=== PATIENT | male | born 1935 | race Caucasian/White ===

== ENCOUNTER 2018-09-16 16:24 | Observation (INO) ==
[2018-09-16] MEDS ORDERED: Dextrose Gel 15 GM/37.5 ML TUBE PO PRN ×2 (19:05)
[2018-09-16] MEDS ORDERED: D5% in Water 1,000 ML IVC PRN (19:05)
[2018-09-16] MEDS ORDERED: *HR* Dextrose 50 % in Water (Syg) 50 ML SYRINGE IVP PRN (19:05)
[2018-09-16] MEDS ORDERED: 0.9 % Sodium Chloride 1,000 ML IVC SCH (21:00)
[2018-09-16] MEDS ORDERED: Ondansetron 4 MG/2 ML VIAL IVP PRN (21:38)
[2018-09-16] MEDS ORDERED: Naloxone 0.4 MG/ML INJ IVP PRN (21:38)
[2018-09-16] MEDS ORDERED: Insulin DETEMIR 100 UNIT/ML X5UNITS SQ ONE (21:43)
[2018-09-16] MEDS ORDERED: Ipratropium/Albuterol Neb 3 ML IH PRN (21:46)
--- NOTE | 2018-09-16 21:57 | Internal Med History&Physical ---
<Brent العراقي - Last Filed: 09/17/18 01:14> Date of Encounter: 09/17/18 Time of Encounter: 21:55 Internal Medicine - H&P: HPI Chief complaint: Shortness of breath, GI bleed Admitted From: Hospital to Hospital Transfer Plans for Post Hospital Care: Transfer Assisted Facility History of present illness: Mr. New is a 82 year old male with PMHx of mental disability, CHF, HTN, DM, HLD, BPH depression presents as a transfer from [facility] with GI bleed, UTI, and CHF exacerbation. Vitals at [facility] showed temp 96.5, HR 72, RR 22, BP 118/65, SpO2 97% on 4L. Labs significant for Hgb of 8.2, Cr 1.26, lactate 2.3. WBC, pro-BNP, and ABG were ok. CXR and CT chest were both concerning for CHF w ith trace pleural effusion but no evidence for infectious process. UA was suspicious for UTI with positive nitrites and bacteria. Patient was given 1 g rocephin, 40 mg of lasix, and 40 mg of protonix, and he was transferred to [place]. Patient is resting comfortably on my exam and doesn't appear to be in acute distress. His niece is present to answer most questions because patient has mental disability. She reports he was recently admitted at [facility] for treatment of pneumonia last week and was discharged with outpatient treatment on azithromycin. He returned to [facility] a few days later with shortness of breath and was found to have a GI bleed and CHF exacerbation. He is on oxygen and is not currently short of breath. He's had dark, tarry stool recently. He's never had a GI bleed or needed a blood transfusion in the past. He doesn't take anticoagulation. He takes lasix at home and doesn't think he's missed any doses recently. He denies history of smoking, alcohol, and drug use. No chest pain, shortness of breath, abdominal pain, n/v, or burning with urination. Past Med Surg Social Fam HX - Past Medical History Medical history: CHF, diabetes, hypertension Additional medical history: Developementally disabled - Past Surgical History Additional surgical history: Eye surgery - Social History Smoking Status: Never smoker Smokeless Tobacco Status: No Alcohol use: none Drug use: none Internal Medicine - H&P: Meds Allergy/AdvReac Type Severity Reaction Status Date / Time Penicillins Allergy Rash Verified 09/16/18 19:04 Sulfa (Sulfonamide Allergy Rash Verified 09/16/18 19:04 Antibiotics) All Systems PM: A 10-system review of systems was performed and is negative for pertinent findings except as documented above in the HPI. - Constitutional General appearance: Present: obese Exam: Patient is alert, but he is mentally disabled. He doesn't look ill-appearing. Resting comfortably in bed. - Eye Eye exam: Present: PERRL. Absent: conjunctival injection - Respiratory Respiratory exam: Present: rhonchi (diffusely). Absent: respiratory distress - Cardiovascular Cardiovascular exam: Present: irregular rhythm Additional comments: pulses irregular, normal rate - GI/Abdominal GI/Abdominal exam: Present: normal bowel sounds, soft. Absent: tenderness - Extremities Exam Extremities exam: Present: normal capillary refill, pedal edema (+2-3 pitting edema in lower 2/3 of legs bilaterally), warm, radial pulses palpable and symmetrical. Absent: calf tenderness, tenderness - Skin Skin exam: Present: dry, warm Internal Med - H&P Results - Labs CBC & Chem 7: 09/16/18 21:48 09/16/18 21:48 - Assessment and Plan (1) GI bleed Current Visit: Yes Status: Acute Assessment and plan: Patient transferred from [facility] with GI bleed - does not appear acutely ill Hb of 8.2 at [facility], 8.2 here, no baseline to compare at [place] INR 1, patient not on anticoagulation Will transfuse 2 units of PRBCs Holding fluids because patient appears fluid overloaded Trending H&H every 6 hours Placed 2 IVs Ordered iron panel GI consulted NPO at midnight Protonix drip Qualifiers: Qualified Code(s): K92.2 - Gastrointestinal hemorrhage, unspecified (2) CHF exacerbation Current Visit: Yes Status: Acute Assessment and plan: Patient with shortness of breath Saturating at 97% on 4L Diffuse rhonchi on lung auscultation, pitting edema in lower extremities Patient given 40 lasix at [facility] CXR and CT chest both concerning for CHF with trace pleural effusion, but no evidence of infectious process Ordered 40 IV lasix (20 IV lasix following each PRBC transfusion) Scheduled duonebs and mucomyst every 4 hours Repeat CXR Ordered echo BNP Qualifiers: Heart failure type: unspecified Qualified Code(s): I50.9 - Heart failure, unspecified (3) Shortness of breath Current Visit: Yes Status: Acute Assessment and plan: Likely 2/2 CHF exacerbation vs GI bleed Saturating at 87% on 4L, doesn't use oxygen at home Duonebs, mucomyst, 2 units PRBCs transfusion, lasix Repeat CXR Ordered echo (4) UTI (urinary tract infection) Current Visit: Yes Status: Acute Assessment and plan: UA at [facility] suspicious for UTI with nitrites and bacteria Patient afebrile, WBC normal Lactic acid 2.3 at [facility], 1.3 here Given 1 g rocephin at [facility] Repeat UA here Continue 1 g IV rocephin daily Blood cultures x2 Qualifiers: Qualified Code(s): N39.0 - Urinary tract infection, site not specified (5) Anemia Current Visit: Yes Status: Acute Assessment and plan: Likely 2/2 GI bleed Not on anticoagulation, INR 1 Hgb 8.2 at [facility], 8.2 here, no baseline at [place] to compare Transfused 2 units of PRBCs Iron profile Vitamin B12 and folate levels Trend H&H every 6 hours Qualifiers: Anemia type: unspecified type Qualified Code(s): D64.9 - Anemia, unspecified (6) Atrial fibrillation Current Visit: Yes Status: Acute Assessment and plan: Patient with atrial fibrillation on EKG at [facility] Pulses irregular on my exam Patient's niece denies history of atrial fibrillation and patient on not on anticoagulation He is on metoprolol at home Not in RVR Will order repeat EKG Hold anticoagulation due to GI bleed Qualifiers: Atrial fibrillation type: unspecified Qualified Code(s): I48.91 - Unspecified atrial fibrillation (7) Diabetes mellitus Current Visit: Yes Status: Acute Assessment and plan: Glucose of 400s on arrival, anion gap of 9 Given 25 units of levemir Med dose sliding scale with glucose checks every 6 hours NPO due to GI bleed Qualifiers: Qualified Code(s): E11.9 - Type 2 diabetes mellitus without complications (8) HTN (hypertension) Current Visit: Yes Status: Acute Assessment and plan: Continue home medications once verified BP 127/60 Qualifiers: Hypertension type: unspecified Qualified Code(s): I10 - Essential (primary) hypertension (9) HLD (hyperlipidemia) Current Visit: Yes Status: Acute Assessment and plan: Continue home medications when verified Qualifiers: Qualified Code(s): E78.5 - Hyperlipidemia, unspecified (10) DVT prophylaxis Current Visit: Yes Status: Acute Assessment and plan: Hold anticoagulation due to GI bleed (11) Depression Current Visit: Yes Status: Acute Assessment and plan: Continue home medications when verified Qualifiers: Depression Type: unspecified Qualified Code(s): F32.9 - Major depressive disorder, single episode, unspecified - Time Spent With Patient Total time spent is greater than 50% in coordination of care (as documented) at patient's floor/unit and/or counseling patient: <Wayne Emerson - Last Filed: 09/17/18 04:48> Date of Encounter: 09/16/18 Time of Encounter: 21:55 Review of systems: per family/niece/POA - Constitutional Constitutional: no chills, no fever(s) - EENT Nose, mouth and throat: no nasal congestion - Cardiovascular Cardiovascular ROS IM: dyspnea, edema, no chest pain - Respiratory Respiratory: cough, dyspnea, no hemoptysis - Gastrointestinal Gastrointestinal: melena, no abdominal pain, no diarrhea, no hematemesis, no he matochezia - Genitourinary Genitourinary ROS male: no dysuria - Integumentary Integumentary IM: no rash - Constitutional Vitals: Temp Pulse Resp BP Pulse Ox 97.9 F 78 16 109/69 97 09/17/18 03:46 09/17/18 03:46 09/17/18 04:07 09/17/18 03:46 09/17/18 04:07 General appearance: Present: cooperative, mild distress - Head Head exam: Present: atraumatic, normal inspection - Eye Eye exam: Absent: scleral icterus - ENT ENT exam: Present: normal exam, normal oropharynx - Neck Neck exam general surgery: Present: supple, trachea midline - Respiratory Respiratory exam: Present: prolonged expiratory phase, rales (faint ), rhonchi. Absent: chest wall tenderness, respiratory distress, wheezes, tachypnea - Cardiovascular Cardiovascular exam: Present: distant heart sounds, irregular rhythm, +S1, +S2. Absent: diastolic murmur, JVD, systolic murmur - GI/Abdominal GI/Abdominal exam: Present: soft. Absent: guarding, hepatomegaly, mass, rebound, splenomegaly, tenderness - Extremities Exam Extremities exam: Present: pedal edema (3+), warm, radial pulses palpable and symmetrical. Absent: calf tenderness - Back Exam Back exam: Absent: CVA tenderness (L), CVA tenderness (R) - Neurological Exam Neurological exam: Present: alert, strengths equal and symetr throughout. Absent: oriented X3 - Psychiatric Psychiatric exam: Present: flat affect - Skin Skin exam: Present: dry, intact, warm Internal Med - H&P Results - Labs CBC & Chem 7: 09/16/18 21:48 09/16/18 21:48 Labs: Short CBC 09/16/18 Range/Units 21:48 WBC 7.2 (4.3-11.1) K/mcL Hgb 8.2 L (12.9-16.9) g/dL Hct 25.0 L (37.5-50.1) % Plt Count 177 (140-400) K/mcL Neutrophils # 5.7 (1.6-8.9) K/mcL BMP 09/16/18 21:48 Sodium 135 L Potassium 4.1 Chloride 101 Carbon Dioxide 25 BUN 40 H Creatinine 1.03 Glucose 466 H Calcium 8.0 L Liver Function 09/16/18 Range/Units 21:48 Total Bilirubin 0.4 (0.3-1.0) mg/dL AST 10 L (13-39) Units/L ALT 13 (7-52) Units/L Alkaline Phosphatase 58 (34-104) Units/L Albumin 3.3 L (3.5-5.7) g/dL - Assessment and Plan (1) GI bleed Current Visit: Yes Status: Acute Qualifiers: Qualified Code(s): K92.2 - Gastrointestinal hemorrhage, unspecified (2) Atrial fibrillation Current Visit: Yes Status: Acute Qualifiers: Atrial fibrillation type: unspecified Qualified Code(s): I48.91 - Unspecified atrial fibrillation (3) DVT prophylaxis Current Visit: Yes Status: Acute (4) CHF exacerbation Current Visit: Yes Status: Acute Qualifiers: Heart failure type: unspecified Qualified Code(s): I50.9 - Heart failure, unspecified (5) Shortness of breath Current Visit: Yes Status: Acute (6) Anemia Current Visit: Yes Status: Acute Qualifiers: Anemia type: unspecified type Qualified Code(s): D64.9 - Anemia, unspe cified (7) UTI (urinary tract infection) Current Visit: Yes Status: Acute Qualifiers: Qualified Code(s): N39.0 - Urinary tract infection, site not specified (8) HTN (hypertension) Current Visit: Yes Status: Acute Qualifiers: Hypertension type: unspecified Qualified Code(s): I10 - Essential (primary) hypertension (9) Diabetes mellitus Current Visit: Yes Status: Acute Qualifiers: Qualified Code(s): E11.9 - Type 2 diabetes mellitus without complications (10) HLD (hyperlipidemia) Current Visit: Yes Status: Acute Qualifiers: Qualified Code(s): E78.5 - Hyperlipidemia, unspecified (11) Depression Current Visit: Yes Status: Acute Qualifiers: Depression Type: unspecified Qualified Code(s): F32.9 - Major depressive disorder, single episode, unspecified - Time Spent With Patient Total time spent is greater than 50% in coordination of care (as documented) at patient's floor/unit and/or counseling patient: - Attending Attestation I discussed the patient [id number], past medical history, [facility] records, exam findings, and very limited review systems as obtained by family member with Dr. العراقي. I then saw and examined patient independently as well. I met with patient's niece/power of assistant attorney general, and I discussed the case with her as well. Patient has reportedly been having episodes of melena for last several weeks. He was at [facility] and treated for presumptive bronchitis and/or CHF. He was noted to have guaiac-positive stools and melena on repeat visit in the ER yesterday. Because of need for further GI workup and lack of GI services available at [facility], he was transferred to [facility] for further workup and care. He is not on any anticoagulation. According to his niece, he does not take any excessive NSAIDs. He has never had GI bleeding before that she can recall. I informed her and patient that he will be kept nothing by mouth after midnight and will likely undergo EGD for further GI workup. He may also need colonoscopy, which can be done as an outpatient if necessary. Meanwhile, we will transfuse 2 units of blood and monitor his hemoglobin/hematocrit closely. Other than my comments above and documented exam findings, I agree with Dr. العراقي's assessment and plan.
[2018-09-16] MEDS ORDERED: Pantoprazole 40 MG VIAL IVP SCH (22:00)
[2018-09-16 22:13] LABS: Hemoglobin 8.2 g/dL (12.9-16.9); Lymphocytes % 13.4 %; Mean Corpuscular HGB Conc 32.8 g/dL (31.6-35.5); Mean Corpuscular Hemoglobin 31.9 pg (28.0-33.3); Mean Corpuscular Volume 97.3 fL (83.0-100.0); Mean Platelet Volume 9.6 fL (9.4-12.4); Monocytes # 0.5 K/mcL (0.0-1.3); Monocytes % 6.6 %; Neutrophils # 5.7 K/mcL (1.6-8.9); Nucleated Red Blood Cells 0.3 /100 WBC (0); Platelet Count 177 K/mcL (140-400); Red Blood Count 2.57 M/mcL (4.19-5.50); Red Cell Distribution Width 15.7 % (11.5-14.5)
[2018-09-16 22:33] LABS: Prothrombin Time 11.7 Seconds (9.4-12.1)
[2018-09-16 22:36] LABS: Activated Partial Thrombo Time 23.7 Seconds (26.0-36.0)
[2018-09-16 22:43] LABS: Alanine Aminotransferase 13 Units/L (7-52); Albumin 3.3 g/dL (3.5-5.7); Albumin/Globulin Ratio 1.7 (1.1-2.2); Alkaline Phosphatase 58 Units/L (34-104); Aspartate Amino Transferase 10 Units/L (13-39); BUN/Creatinine Ratio 39 (6-26); Bilirubin,Total 0.4 mg/dL (0.3-1.0); Blood Urea Nitrogen 40 mg/dL (8-23); Carbon Dioxide 25 mEq/L (23-29); Chloride 101 mEq/L (98-107); Glucose 466 mg/dL (70-105); Magnesium 2.1 mg/dL (1.6-2.6); Osmolality,Calculated 310 (280-300); Potassium 4.1 mEq/L (3.5-5.1); Sodium 135 mEq/L (136-145); Total Protein 5.3 g/dL (6.4-8.9); eGFR For Non-African Americans > 60 (> 60)
[2018-09-16] MEDS ORDERED: Furosemide 20 MG/2 ML VIAL IVP ONE ×2 (23:00→23:02)
[2018-09-16] MEDS ORDERED: 0.9 % Sodium Chloride 250 ML ONE (23:34)
[2018-09-16] MEDS: Ipratropium/Albuterol Neb 3 ML IH SCH (23:56)
[2018-09-16] MEDS: Acetylcysteine 10% 2 ML INHSOL IH SCH (23:56)
[2018-09-17] MEDS: Pantoprazole 40 MG in 0.9 % Sodium Chloride Mini Bag 100 ML IVC SCH ×3 (00:37→12:15)
[2018-09-17] MEDS: Melatonin 3 MG TABLET PO SCH ×2 (01:03→20:43)
[2018-09-17] MEDS: Insulin LISPRO 300 UNITS/3 ML VIAL SQ SCH ×4 (01:24→16:56)
[2018-09-17] MEDS: Acetylcysteine 10% 2 ML INHSOL IH SCH ×5 (04:06→19:54)
[2018-09-17] MEDS: Ipratropium/Albuterol Neb 3 ML IH SCH ×5 (04:06→19:54)
[2018-09-17 05:30] LABS: Bilirubin,Urine Negative (Negative); Blood,Urine Large (Negative); Clarity,Urine Clear (Clear); Color,Urine Yellow (Yellow); Glucose,Urine (UA) 100 mg/dL (Normal); Ketones,Urine Negative (Negative); Leukocyte Esterase,Urine Small (Negative); Nitrite,Urine Negative (Negative); Protein,Urine 30 mg/dL (Neg-Trace); Urobilinogen,Urine Normal (Normal)
[2018-09-17 05:33] LABS: % Iron Saturation 14 % (20-55); Iron 43 mcg/dL (65-175); Transferrin 218 mg/dL (203-362)
[2018-09-17 05:33] LABS: Bacteria,Urine None Seen per hpf (None-Few); Hyaline Casts,Urine None Seen per lpf (None-Few); RBC,Urine TNTC per hpf (0-3); Squamous Epithelial Cell,Urine Moderate per lpf (None-Few)
[2018-09-17 05:58] LABS: Folate 18.6 ng/mL (3.0-16.0)
[2018-09-17 06:11] LABS: Hematocrit 28.2 % (37.5-50.1); Hemoglobin 9.1 g/dL (12.9-16.9)
[2018-09-17] MEDS ORDERED: cefTRIAXone 1,000 MG in Water for inj. (sterile) 20 ML 10 ML IVP SCH (09:00)
--- NOTE | 2018-09-17 09:53 | Event Note ---
Date of Encounter: 09/17/18 Time of Encounter: 09:53 Patient seen and examined this morning at bedside. Admitted overnight for possible upper GI bleeding with history of melena and anemia. No stool has been collected. GI has been consulted. Patient hemodynamically stable. 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 We will get CT chest for abnormal chest x-ray. Incentive spirometry and DuoNeb's. Follow-up echocardiogram. Continue with PPI for now
[2018-09-17 11:49] LABS: Hematocrit 29.7 % (37.5-50.1); Hemoglobin 9.5 g/dL (12.9-16.9)
--- NOTE | 2018-09-17 12:29 | Electrocardiograph Report ---
[address] [address] Test Date: 2018-09-17 Pat Name: Byron New Department: 111 Room: 2NE17 Gender: M [employer] Director: : [id number] Requested By: Brent Eldridge Order Number: [id number] Reading MD: Miki Zepeda Measurements Intervals [place] Rate: 77 P: 263 NE: 157 QRS: 29 QRSD: 108 T: 90 QT: 348 QTc: 380 Interpretive Statements SINUS RHYTHM WITH SINUS ARRHYTHMIA LOW QRS VOLTAGE IN EXTREMITY LEADS NONSPECIFIC T-WAVE ABNORMALITY Electronically Signed On 09-17-2018 12:27:15 EDT by Miki Zepeda
--- NOTE | 2018-09-17 12:35 | Gastroenterology Consult Note ---
<Marcie Menard - Last Filed: 09/17/18 12:32> Date of Encounter: 09/17/18 Time of Encounter: 10:00 - Assessment and plan (1) GI bleed Current Visit: Yes Status: Acute Assessment and plan: 82 year old male who presents with melena and anemia. Hgb has dropped from a baseline of 14 to 8.2. Spoke with pts guardian who has consented to EGD today to rule out esophagitis, gastritis, duodenitis, PUD, MW tear, or AVM. He may need colonoscopy if source of bleeding not found. Continue PPI. Monitor H&H transfuse as needed. Qualifiers: GI bleed type/associated pathology: melena Qualified Code(s): K92.1 - Melena (2) Anemia Current Visit: Yes Status: Acute Qualifiers: Anemia type: unspecified type Qualified Code(s): D64.9 - Anemia, un specified - Time Spent With Patient Total time spent is greater than 50% in coordination of care (as documented) at patient's floor/unit and/or counseling patient: GI History of Present Illness - Data of Consult Patient: new to practice Consult date: 09/17/18 Requesting Physician: Lucas Beckett MD - Consult Narrative Reason for consult: anemia, GI bleed History of present illness: Mr. New is a 82 year old male with PMHx of mental disability, CHF, HTN, DM, HLD, BPH and depression. He presented as a transfer from [facility] with GI bleed, UTI, and CHF exacerbation. Labs significant for Hgb of 8.2, Cr 1.26, lactate 2.3. WBC, pro-BNP, and ABG were ok. CXR and CT chest were both concerning for CHF with trace pleural effusion but no evidence for infectious process. UA was suspicious for UTI with positive nitrites and bacteria. Patient was given 1 g rocephin, 40 mg of lasix, and 40 mg of protonix, and he was transferred to [place]. Patient is resting comfortably on my exam and doesn't appear to be in acute distress. His niece is present to answer most questions because patient has mental disability, and she is his guardian. She reports he was recently admitted at [facility] for treatment of pneumonia last week and was discharged with outpatient treatment on azithromycin and steroids. He returned to [facility] a few days later with shortness of breath and was found to have a GI bleed and CHF exacerbation. He is on oxygen and is not currently short of breath. He's had dark, tarry stool recently. He's never had a GI bleed or needed a blood transfusion in the past. He doesn't take anticoagulation. He denies history of smoking, alcohol, and drug use. No chest pain, shortness of breath, abdominal pain, n/v, or burning with urination. nsaids: asa anticoagulants: none Procedures: burak denies any previous endoscopy procedures Past Med Surg Social Fam HX - Past Medical History Medical history: CHF, diabetes, hypertension Additional medical history: Developementally disabled - Past Surgical History Additional surgical history: Eye surgery - Social History Smoking Status: Never smoker Smokeless Tobacco Status: No Alcohol use: none Drug use: none ROS unobtainable: due to mental status - Constitutional Vitals: Temp Pulse Resp BP Pulse Ox 97.9 F 80 18 101/48 88 09/17/18 03:46 09/17/18 12:06 09/17/18 12:06 09/17/18 12:06 09/17/18 12:06 Exam: CONSTITUTIONAL:drowsy, does not answer questions at all.HEAD:normocephalic.EYES:no jaundice.NECK:no obvious swelling.HEAR T:regular rate and rhythm, no murmurs.LUNGS:bilateral poor air entry.ABDOMEN:non distended, soft, non tender, no masses palpable, no organomegaly.RECTAL EXAM:Deferred.EXTREMITIES:no clubbing, cyanosis or edema, obesity.SKIN:pallor noted, no stigmata of chronic liver disease.NEUROLOGIC:no obvious focal defect. Results - Labs CBC & Chem 7: 09/17/18 11:00 09/16/18 21:48 Labs: Last Result 09/17/18 09/17/18 04:11 04:11 Iron 43 L % Saturation 14 L Transferrin 218 Vitamin B12 446 Folate 18.6 H Entire Visit 09/17/18 09/17/18 09/17/18 04:11 04:11 11:00 Hgb 9.1 L 9.5 L Hct 28.2 L 29.7 L Folate 18.6 H - ABG ABG results: PT/INR, D-dimer PT 11.7 Seconds (9.4-12.1) 09/16/18 21:48 - Impressions Impressions Echocardiogram Limited Views 09/17/18 07:00 Impressions: Technically sub-optimal due to patient not cooperative; incomplete exam. Mild to moderately decreased LV systolic function; please repeat study when patient is more cooperative Mild concentric left ventricular hypertrophy. Findings: Study Quality * Technically sub-optimal due to patient not cooperative; incomplete exam. Left Ventricle * Mild to moderately decreased LV systolic function; please repeat study when patient is more cooperative * Mild concentric left ventricular hypertrophy. Mitral Valve * Normal mitral valve structure. Chest CT 09/17/18 10:30 IMPRESSION: 1. There is cardiomegaly without evidence of overt heart failure at this time. 2. There is minor focal consolidation in the right lower lobe, new from yesterday's exam. This could represent aspiration, pneumonia or atelectasis. Clinical correlation and follow-up chest radiographs are recommended. 3. Atherosclerotic vascular calcifications noted. Left basilar atelectasis is unchanged. The exam is otherwise unremarkable. D/ / Hua Tapia MD / Hua Tapia MD Interpreting Provider: Hua Tapia MD Chest X-Ray 09/17/18 22:59 IMPRESSION: 1. Cardiomegaly without acute failure. 2. New volume loss and consolidation involving the right lower lobe. These findings could represent pneumonia or mucus plugging with associated right basilar atelectasis. D/ / 09/17/2018 07:36:36 Raoul Mejia MD / [email or web address] Interpreting Provider: Raoul Mejia MD Consult Discharge Plan - Plan Referrals: Murtaza Richetr DO [Primary Care Provider] - <Yanni Fuentes - Last Filed: 09/17/18 18:10> Date of Encounter: 09/17/18 Time of Encounter: 11:00 - Time Spent With Patient Total time spent is greater than 50% in coordination of care (as documented) at patient's floor/unit and/or counseling patient: GI History of Present Illness - Data of Consult Requesting Physician: Lucas Beckett MD - Consult Narrative History of present illness: Mr. New is a 82 year old male - Constitutional Vitals: Temp Pulse Resp BP Pulse Ox 97.9 F 86 18 92/59 90 09/17/18 03:46 09/17/18 16:42 09/17/18 16:42 09/17/18 16:42 09/17/18 16:42 Results - Labs CBC & Chem 7: 09/17/18 17:11 09/16/18 21:48 Labs: Entire Visit 09/17/18 09/17/18 09/17/18 04:11 11:00 17:11 Hgb 9.1 L 9.5 L 9.3 L Hct 28.2 L 29.7 L 29.3 L - ABG ABG results: PT/INR, D-dimer PT 11.7 Seconds (9.4-12.1) 09/16/18 21:48 - Impressions Impressions Echocardiogram Limited Views 09/17/18 07:00 Impressions: Technically sub-optimal due to patient not cooperative; incomplete exam. Mild to moderately decreased LV systolic function; please repeat study when patient is more cooperative Mild concentric left ventricular hypertrophy. Findings: Study Quality * Technically sub-optimal due to patient not cooperative; incomplete exam. Left Ventricle * Mild to moderately decreased LV systolic function; please repeat study when patient is more cooperative * Mild concentric left ventricular hypertrophy. Mitral Valve * Normal mitral valve structure. Chest CT 09/17/18 10:30 IMPRESSION: 1. There is cardiomegaly without evidence of overt heart failure at this time. 2. There is minor focal consolidation in the right lower lobe, new from yesterday's exam. This could represent aspiration, pneumonia or atelectasis. Clinical correlation and follow-up chest radiographs are recommended. 3. Atherosclerotic vascular calcifications noted. Left basilar atelectasis is unchanged. The exam is otherwise unremarkable. D/ / Hua Tapia MD / Hua Tapia MD Interpreting Provider: Hua Tapia MD Chest X-Ray 09/17/18 22:59 IMPRESSION: 1. Cardiomegaly without acute failure. 2. New volume loss and consolidation involving the right lower lobe. These findings could represent pneumonia or mucus plugging with associated right basilar atelectasis. D/ / 09/17/2018 07:36:36 Raoul Mejia MD / [facility] Interpreting Provider: Raoul Mejia MD - Attending Attestation I have personally performed a face to face evaluation on this patient. I have reviewed and agree with the care plan. History and Exam by me shows: Patient seen at the bedside. Caregiver is present and per her patient had rectal bleeding. On examination: Abdomen is benign. Assessment: Patient with melena. Recommendation EGD today. Follow H&H and transfuse as needed
[2018-09-17] MEDS ORDERED: *HR* Propofol 200 MG/20 ML VIAL IVP ONE (13:55)
--- NOTE | 2018-09-17 14:12 | Anesthesia Evaluation PreOp ---
Date of Encounter: 09/17/18 Time of Encounter: 14:10 - Past History Planned Operation: EGD Cardiac History: CHF (ECHO 09/17/18 Impressions: Technically sub-optimal due to patient not cooperative; incomplete exam. Mild to moderately decreased LV systolic function; please repeat study when patient is more cooperative Mild concentric left ventricular hypertrophy. Findings: Study Quality * Technically sub-optimal due to patient not cooperative; incomplete exam. Left Ve ntricle * Mild to moderately decreased LV systolic function; please repeat study when patient is more cooperative * Mild concentric left ventricular hypertrophy. 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 History: Other (MRDD) Other Medical History: Diabetes Type II, Other (GI bleed, anemia) Anesthesia History: No Prior Anesthetic Complications, Past Anesthesia (eye) Alcohol Use: none Drug use: none Medications and Allergies Alfuzosin HCl 10 mg PO DAILY 09/17/18 [History] Aspirin [Adult Aspirin] 81 mg PO DAILY 09/17/18 [History] Brimonidine 0.2% 1 drop BOTH EYES DAILY 09/17/18 [History] Buspirone HCl [Buspar] 15 mg PO TID 09/17/18 [History] Colestipol HCl [Colestid] 1 gm PO BID 09/17/18 [History] Erythromycin 2% Gel 1 each TID 09/17/18 [History] Finasteride 5 mg PO DAILY 09/17/18 [History] Furosemide [Lasix] 20 mg PO DAILY 09/17/18 [History] Ketoconazole 2% CRM 1 foot DAILY 09/17/18 [History] Loratadine [Allergy Relief] 10 mg PO DAILY 09/17/18 [History] Losartan 50 mg PO DAILY 09/17/18 [History] Metoprolol [Lopressor] 50 mg PO BID 09/17/18 [History] Pioglitazone 15 mg PO DAILY 09/17/18 [History] PredniSONE 10 mg PO DAILY 09/17/18 [History] Sertraline [Zoloft] 25 mg PO DAILY 09/17/18 [History] Thera M Plus 1 tab PO DAILY 09/17/18 [History] Allergy/AdvReac Type Severity Reaction Status Date / Time Penicillins Allergy Rash Verified 09/16/18 19:04 Sulfa (Sulfonamide Allergy Rash Verified 09/16/18 19:04 Antibiotics) - Meds/Allergy Pre-op Review Medications Reviewed: Yes Allergies Reviewed: Yes Beta Blockers on Current Med List: No Anesthesia Results - Labs 09/17/18 11:00 09/16/18 21:48 - Imaging EKG: report reviewed ( Interpretive Statements SINUS RHYTHM WITH SINUS ARRHYTHMIA LOW QRS VOLTAGE IN EXTREMITY LEADS NONSPECIFIC T-WAVE ABNORMALITY Electronically Signed On 09-17-2018 12:27:15 EDT by Miki Zepeda) Additional studies: chest CT 09/17/17 MPRESSION: 1. There is cardiomegaly without evidence of overt heart failure at this time. 2. There is minor focal consolidation in the right lower lobe, new from yesterday's exam. This could represent aspiration, pneumonia or atelectasis. Clinical correlation and follow-up chest radiographs are recommended. 3. Atherosclerotic vascular calcifications noted. Left basilar atelectasis is unchanged. The exam is otherwise unremarkable CXR 09/17/18 MPRESSION: 1. Cardiomegaly without acute failure. 2. New volume loss and consolidation involving the right lower lobe. These findings could represent pneumonia or mucus plugging with associated right basilar atelectasis.. 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
[2018-09-17] MEDS ORDERED: 0.9 % Sodium Chloride 500 ML IVC SCH (14:45)
--- NOTE | 2018-09-17 15:20 | Anesthesia Evaluation Post Op ---
Date of Encounter: 09/17/18 Time of Encounter: 15:19 - Vital Signs Vital Signs: see nursing notes - Lungs Lungs: Clear Ascult./Percussion - Airway Airway: Non-obstructed - Cardiovascular Regular Rate - Mental Status Mental Status: Baseline Status - Pain Pain Scale used: Numeric (1 - 10) - Nausea Vomiting Nausea Vomiting: Not Present - Hydration Hydration: NPO - Discharge PostOp Status: Transfer Patient to floor
[2018-09-17 17:37] LABS: Hematocrit 29.3 % (37.5-50.1); Hemoglobin 9.3 g/dL (12.9-16.9)
[2018-09-17] MEDS: Pantoprazole 40 MG VIAL IVP SCH ×2 (18:52→18:57)
[2018-09-17] MEDS: (Colestipol Hcl [Colestid] 1 GM) PO SCH (20:44)
[2018-09-17] MEDS ORDERED: BUSPIRONE HCL 10 MG TABLET PO SCH (21:00)
[2018-09-17 23:52] LABS: Hematocrit 26.3 % (37.5-50.1); Hemoglobin 8.3 g/dL (12.9-16.9)
[2018-09-18] MEDS: Ipratropium/Albuterol Neb 3 ML IH SCH ×5 (00:35→16:36)
[2018-09-18] MEDS: Acetylcysteine 10% 2 ML INHSOL IH SCH ×5 (00:35→16:36)
[2018-09-18] MEDS: Pantoprazole 40 MG VIAL IVP SCH ×2 (05:50→18:22)
[2018-09-18 06:40] LABS: Basophils % 0.2 %; Eosinophils # 0.1 K/mcL (0.0-0.6); Eosinophils % 1.2 %; Hematocrit 27.6 % (37.5-50.1); Hemoglobin 8.6 g/dL (12.9-16.9); Immature Granulocytes % 0.7 % (0-4); Lymphocytes # 0.8 K/mcL (0.6-4.6); Lymphocytes % 13.5 %; Mean Corpuscular HGB Conc 31.2 g/dL (31.6-35.5); Mean Corpuscular Hemoglobin 30.9 pg (28.0-33.3); Mean Corpuscular Volume 99.3 fL (83.0-100.0); Mean Platelet Volume 9.4 fL (9.4-12.4); Monocytes # 0.5 K/mcL (0.0-1.3); Neutrophils # 4.5 K/mcL (1.6-8.9); Platelet Count 157 K/mcL (140-400); Red Blood Count 2.78 M/mcL (4.19-5.50); Red Cell Distribution Width 16.7 % (11.5-14.5); Segmented Neutrophils % 76.4 %
[2018-09-18 06:59] LABS: BUN/Creatinine Ratio 37 (6-26); Blood Urea Nitrogen 32 mg/dL (8-23); Calcium 7.9 mg/dL (8.6-10.3); Carbon Dioxide 22 mEq/L (23-29); Chloride 105 mEq/L (98-107); Glucose 286 mg/dL (70-105); Osmolality,Calculated 309 (280-300); Potassium 3.5 mEq/L (3.5-5.1); Sodium 141 mEq/L (136-145); eGFR For Non-African Americans > 60 (> 60)
[2018-09-18] MEDS ORDERED: Levofloxacin 750 MG/150 ML 750 MG/150 ML BAG IVPB SCH (09:00)
[2018-09-18] MEDS: Nystatin OINT 15 GM TUBE TP SCH ×4 (09:26→18:33)
[2018-09-18] MEDS: Insulin LISPRO 300 UNITS/3 ML VIAL SQ SCH ×3 (09:30→18:26)
[2018-09-18] MEDS: (Colestipol Hcl [Colestid] 1 GM) PO SCH (09:30)
[2018-09-18 11:27] VITALS: BP 121/61
--- NOTE | 2018-09-18 15:42 | Internal Med Progress Note ---
Hospitalist Progress Note - Encounter Date of Encounter: 09/18/18 Time of Encounter: 11:42 - Exam Vitals: Temp Pulse Resp BP Pulse Ox 98 F 83 16 121/61 93 09/18/18 11:10 09/18/18 11:10 09/18/18 11:32 09/18/18 11:10 09/18/18 11:32 - Assessment and Plan (1) GI bleed Current Visit: Yes Status: Acute (2) Atrial fibrillation Current Visit: Yes Status: Acute (3) DVT prophylaxis Current Visit: Yes Status: Acute (4) CHF exacerbation Current Visit: Yes Status: Acute (5) Shortness of breath Current Visit: Yes Status: Acute (6) Anemia Current Visit: Yes Status: Acute (7) UTI (urinary tract infection) Current Visit: Yes Status: Acute (8) HTN (hypertension) Current Visit: Yes Status: Acute (9) Diabetes mellitus Current Visit: Yes Status: Acute (10) HLD (hyperlipidemia) Current Visit: Yes Status: Acute (11) Depression Current Visit: Yes Status: Acute - Time Spent with Patient Total time spent is greater than 50% in coordination of care (as documented) at patient's floor/unit and/or counseling patient: Internal Medicine: Result - Labs CBC & Chem 7: 09/18/18 06:22 09/18/18 06:22 Labs: Short CBC 09/17/18 09/17/18 09/18/18 Range/Units 17:11 23:25 06:22 WBC 5.8 (4.3-11.1) K/mcL Hgb 9.3 L 8.3 L 8.6 L (12.9-16.9) g/dL Hct 29.3 L 26.3 L 27.6 L (37.5-50.1) % Plt Count 157 (140-400) K/mcL Neutrophils # 4.5 (1.6-8.9) K/mcL BMP 09/18/18 06:22 Sodium 141 Potassium 3.5 Chloride 105 Carbon Dioxide 22 L BUN 32 H Creatinine 0.86 Glucose 286 H Calcium 7.9 L - ABG Interpretation ABG results: PT/INR, D-dimer PT 11.7 Seconds (9.4-12.1) 09/16/18 21:48 Consult Discharge Plan - Plan Referrals: Murtaza Richter DO [Primary Care Provider] - (1) GI bleed Qualifiers: GI bleed type/associated pathology: melena Qualified Code(s): K92.1 - Melena (2) Atrial fibrillation Qualifiers: Atrial fibrillation type: unspecified Qualified Code(s): I48.91 - Unspecified atrial fibrillation (4) CHF exacerbation Qualifiers: Heart failure type: unspecified Qualified Code(s): I50.9 - Heart failure, unspecified (6) Anemia Qualifiers: Anemia type: unspecified type Qualified Code(s): D64.9 - Anemia, unspecified (7) UTI (urinary tract infection) Qualifiers: Qualified Code(s): N39.0 - Urinary tract infection, site not specified (8) HTN (hypertension) Qualifiers: Hypertension type: unspecified Qualified Code(s): I10 - Essential (primary) hypertension (9) Diabetes mellitus Qualifiers: Qualified Code(s): E11.9 - Type 2 diabetes mellitus without complications (10) HLD (hyperlipidemia) Qualifiers: Qualified Code(s): E78.5 - Hyperlipidemia, unspecified (11) Depression Qualifiers: Depression Type: unspecified Qualified Code(s): F32.9 - Major depressive disorder, single episode, unspecified
--- NOTE | 2018-09-18 16:47 | Discharge Summary ---
- NOTES TO OUTPATIENT PROVIDER Notes to Outpatient Provider: Patient will need follow-up with gastroenterology in 2-4 weeks. Discharge with antibiotics for aspiration pneumonia and PPI for duodenal ulcer. Patient's aspirin and prednisone has been held given duodenal ulcer. Discharged with home oxygen for short course. Orders not resulted at time of discharge: Pending orders 09/16/18 21:48 Red Blood Cells [BBK] Stat Type and Screen [BBK] Stat 09/16/18 21:55 Culture,Blood [BC] Stat 09/17/18 15:26 Surgical Pathology [PTH] Routine Date of Encounter: 09/18/18 Time of Encounter: 16:45 - Discharge Diagnosis (1) GI bleed Priority: Primary Status: Acute Qualifiers: GI bleed type/associated pathology: melena Qualified Code(s): K92.1 - Melena (2) Atrial fibrillation Priority: Secondary Status: Acute Qualifiers: Atrial fibrillation type: unspecified Qualified Code(s): I48.91 - Unspecified atrial fibrillation (3) DVT prophylaxis Priority: Secondary Status: Acute (4) Shortness of breath Priority: Primary Status: Acute (5) Anemia Priority: Secondary Status: Acute Qualifiers: Anemia type: unspecified type Qualified Code(s): D64.9 - Anemia, unspecified (6) HTN (hypertension) Priority: Secondary Status: Acute Qualifiers: Hypertension type: unspecified Qualified Code(s): I10 - Essential (primary) hypertension (7) Diabetes mellitus Priority: Secondary Status: Acute Qualifiers: Qualified Code(s): E11.9 - Type 2 diabetes mellitus without complications (8) HLD (hyperlipidemia) Priority: Secondary Status: Acute Qualifiers: Qualified Code(s): E78.5 - Hyperlipidemia, unspecified (9) Depression Priority: Secondary Status: Acute Qualifiers: Depression Type: unspecified Qualified Code(s): F32.9 - Major depressive disorder, single episode, unspecified (10) Acute respiratory failure with hypoxia Priority: Primary Status: Acute (11) Aspiration pneumonia Priority: Primary Status: Acute Qualifiers: Aspiration pneumonia type: unspecified Laterality: right Lung location: lower lobe of lung Qualified Code(s): J69.0 - Pneumonitis due to inhalation of food and vomit Hospital course: Mr. New is a 82 year old male with past medical history of CHF, hypertension, diabetes, mental retardation, BPH came in from [facility] for possible GI bleed, UTI, CHF. Patient did have abnormal UA however his BNP was unremarkable and no signs of fluid overload. Patient was started on empiric ceftriaxone. He Was kept nothing by mouth and started on PPI. GI consultation was obtained and patient underwent EGD which showed non-bleeding large duodenal ulcer. Patient on not any anticoagulant but on aspirin and prednisone at home. We will attempt them were held. Patient hemoglobin remained stable after. Patient did have significant hypoxia and was found to have aspiration pneumonia based on CT findings and clinically. He is dating about 4 L of oxygen while resting. He is otherwise stable to be discharged if home oxygen could be arranged. Blood culture and urine culture negative so far and patient does not have any UTI. We will discharge patient to home with home health to follow with PCP within one week. Patient would need gastroenterology follow-up in 2-4 weeks. Discharged with a prescription of Levaquin to finish 5 day course and pantoprazole twice a day. Patient was evaluated by speech therapy who recommended mechanical soft thin liquid diet. Discharge discussed with: patient, family, nurse, social work, medical economics consultant - Time Spent with Patient Total time spent providing and/or coordinating discharge services: Time spent: Greater than 30 minutes (40) - Discharge Medications Prescriptions: New Levofloxacin [Levaquin] 750 mg PO DAILY 4 Days #4 tablet Pantoprazole Sodium 40 mg PO BID 30 Days #60 tablet. Continued Colestipol HCl [Colestid] 1 gm PO BID Metoprolol [Lopressor] 75 mg PO BID Multivit,Th Iron,Other Min [Thera-M] 1 tab PO QAM Sertraline [Zoloft] 25 mg PO QAM Pioglitazone [Actos] 15 mg PO QAM Losartan Potassium [Cozaar] 50 mg PO QAM Loratadine [Allergy Relief] 10 mg PO QAM Furosemide [Lasix] 20 mg PO QAM Finasteride [Proscar] 5 mg PO QPM Brimonidine 0.2% [Alphagan] 1 drop RIGHT EYE QPM Alfuzosin HCl [Uroxatral] 10 mg PO QPM Buspirone HCl [Buspar] 15 mg PO TID Gabapentin 600 mg PO HS Liraglutide [Victoza 3-Krish] 1.8 mg SQ DAILY Erythromycin OPTH Oint 1 appl BOTH EYES TID Ketoconazole 2% CRM [Nizoral Cream] 1 appl TP QPM Discontinued Aspirin [Adult Aspirin] 81 mg PO QAM predniSONE [PredniSONE] See Taper PO AD Home Medications: Alfuzosin HCl [Uroxatral] 10 mg PO QPM 09/17/18 [History] Brimonidine 0.2% [Alphagan] 1 drop RIGHT EYE QPM 09/17/18 [History] Buspirone HCl [Buspar] 15 mg PO TID 09/17/18 [History] Colestipol HCl [Colestid] 1 gm PO BID 09/17/18 [History] Erythromycin OPTH Oint 1 appl BOTH EYES TID 09/17/18 [History] Finasteride [Proscar] 5 mg PO QPM 09/17/18 [History] Furosemide [Lasix] 20 mg PO QAM 09/17/18 [History] Gabapentin 600 mg PO HS 09/17/18 [History] Ketoconazole 2% CRM [Nizoral Cream] 1 appl TP QPM 09/17/18 [History] Liraglutide [Victoza 3-Krish] 1.8 mg SQ DAILY 09/17/18 [History] Loratadine [Allergy Relief] 10 mg PO QAM 09/17/18 [History] Losartan Potassium [Cozaar] 50 mg PO QAM 09/17/18 [History] Metoprolol [Lopressor] 75 mg PO BID 09/17/18 [History] Multivit,Th Iron,Other Min [Thera-M] 1 tab PO QAM 09/17/18 [History] Pioglitazone [Actos] 15 mg PO QAM 09/17/18 [History] Sertraline [Zoloft] 25 mg PO QAM 09/17/18 [History] Levofloxacin [Levaquin] 750 mg PO DAILY 4 Days #4 tablet 09/18/18 [Rx] Pantoprazole Sodium 40 mg PO BID 30 Days #60 tablet. 09/18/18 [Rx] Allergies/Adverse Reactions: Allergy/AdvReac Type Severity Reaction Status Date / Time Penicillins Allergy Rash Verified 09/16/18 19:04 Sulfa (Sulfonamide Allergy Rash Verified 09/17/18 18:41 Antibiotics) Date of admission: 09/16/18 18:12 Primary care physician: Murtaza Richter Consults: 09/16/18 23:14 Consult to Gastroenterology [CONS] Routine Consulting Provider: G[facility] Reason for Consult: Transfer from [facility] for GI bleed. Hb of 8.2, no records here for baseline. Patient with recent dark, tarry stool. Transfused 2 units of PRBCs. Suspect upper GI bleed. Call Completed: No 09/18/18 16:22 Consult to Speech Therapy [CONS] Routine Comment: Evaluate, develop and implement POC Reason for Consult: swallow evaluation Call Completed: Yes Discharging clinician: Lucas Beckett - Constitutional Vitals: Temp Pulse Resp BP Pulse Ox 98 F 83 20 121/61 90 09/18/18 11:10 09/18/18 11:10 09/18/18 16:36 09/18/18 11:10 09/18/18 16:36 Exam: Exam General: In no acute distress. Limited cognition. Respiratory exam: CTAB. no rales, rhonchi, wheezes. Cardiovascular exam: RRR, +S1, +S2. no murmur, gallop, rubs. GI/Abdominal exam: Non-tender, Non-distended, normal bowel sounds, soft, no peritoneal signs. Extremities exam: no pedal edema, pulses palpable in b/l lower extremities. no calf tenderness Neurological exam: CN II-XII intact, AO X3, no focal deficits. Skin exam: No skin rash - Patient Status Disposition: Home Health Service - Discharge Instructions Follow Up With: Murtaza Richter DO [Primary Care Provider] - - Diet and Activity Activity: as per physical therapy, increase activity as tolerated
--- NOTE | 2018-09-18 17:03 | Physician Discharge Referral ---
Home Health/Hosp Referral Info Transfer to: Home Health - Diagnosis (1) GI bleed Status: Acute (2) Atrial fibrillation Status: Acute (3) DVT prophylaxis Status: Acute (4) Shortness of breath Status: Acute (5) Anemia Status: Acute (6) HTN (hypertension) Status: Acute (7) Diabetes mellitus Status: Acute (8) HLD (hyperlipidemia) Status: Acute (9) Depression Status: Acute (10) Acute respiratory failure with hypoxia Status: Acute (11) Aspiration pneumonia Status: Acute - Respiratory Orders Smoking Cessation: Smoking cessation has been advised. For more information, call the [place] Tobacco Quit Line at 9-370-BGMQ-NOW. - Services Needed Following services are medically necessary services: Nursing, Home Health Aide, Physical Therapy, Occupational Therapy, Speech Therapy - Transfer Medications Prescriptions: Levofloxacin [Levaquin] 750 mg PO DAILY 4 Days #4 tablet Pantoprazole Sodium 40 mg PO BID 30 Days #60 tablet.dr Home Medications: Alfuzosin HCl [Uroxatral] 10 mg PO QPM 09/17/18 [History] Brimonidine 0.2% [Alphagan] 1 drop RIGHT EYE QPM 09/17/18 [History] Buspirone HCl [Buspar] 15 mg PO TID 09/17/18 [History] Colestipol HCl [Colestid] 1 gm PO BID 09/17/18 [History] Erythromycin OPTH Oint 1 appl BOTH EYES TID 09/17/18 [History] Finasteride [Proscar] 5 mg PO QPM 09/17/18 [History] Furosemide [Lasix] 20 mg PO QAM 09/17/18 [History] Gabapentin 600 mg PO HS 09/17/18 [History] Ketoconazole 2% CRM [Nizoral Cream] 1 appl TP QPM 09/17/18 [History] Liraglutide [Victoza 3-Krish] 1.8 mg SQ DAILY 09/17/18 [History] Loratadine [Allergy Relief] 10 mg PO QAM 09/17/18 [History] Losartan Potassium [Cozaar] 50 mg PO QAM 09/17/18 [History] Metoprolol [Lopressor] 75 mg PO BID 09/17/18 [History] Multivit,Th Iron,Other Min [Thera-M] 1 tab PO QAM 09/17/18 [History] Pioglitazone [Actos] 15 mg PO QAM 09/17/18 [History] Sertraline [Zoloft] 25 mg PO QAM 09/17/18 [History] Levofloxacin [Levaquin] 750 mg PO DAILY 4 Days #4 tablet 09/18/18 [Rx] Pantoprazole Sodium 40 mg PO BID 30 Days #60 tablet. 09/18/18 [Rx] Allergies/Adverse Reactions: Allergy/AdvReac Type Severity Reaction Status Date / Time Penicillins Allergy Rash Verified 09/16/18 19:04 Sulfa (Sulfonamide Allergy Rash Verified 09/17/18 18:41 Antibiotics) Certification: Further, I certify that my clinical findings support that this patient is homebound (i.e. absences from home require considerable and taxing effort and are for medical reasons or voodoo services or infrequently or short duration when for other reasons) because: Homebound Reason: Patient requires assistance of a person or device to safely leave home Attestation: My signature below is to certify that this patient is under my care and that I, or nurse practitioner, or a physician's event sales assistant working with me, has a [id number] encounter with this patient.
[2018-09-18] MEDS ORDERED: Insulin LISPRO 300 UNITS/3 ML VIAL SQ SCH (21:00)
== END 2018-09-18 19:14 | disposition home health service (06) ==
LOC: 2NENU → SUATTDRO 18:12
PROVIDERS: ADMIT Internal Medicine Nephrology; ATTEND Internal Medicine
PROC: ENDOEBX (2018-09-17 14:30)

== ENCOUNTER 2019-05-14 01:29 | Inpatient (IN) ==
[2019-05-14 02:03] LABS: Bilirubin,Urine Negative (Negative); Blood,Urine Negative (Negative); Clarity,Urine Cloudy (Clear); Color,Urine Yellow (Yellow); Glucose,Urine (UA) 100 mg/dL (Normal); Ketones,Urine Negative (Negative); Leukocyte Esterase,Urine Small (Negative); Nitrite,Urine Positive (Negative); Protein,Urine Negative (Neg-Trace); Specific Gravity,Urine 1.016 (1.010-1.025); Urobilinogen,Urine Normal (Normal)
[2019-05-14 02:04] LABS: Basophils # 0.1 K/mcL (0.0-0.2); Basophils % 1.1 %; Eosinophils # 0.4 K/mcL (0.0-0.6); Eosinophils % 6.6 %; Hematocrit 32.4 % (37.5-50.1); Hemoglobin 9.6 g/dL (12.9-16.9); Immature Granulocytes % 0.4 % (0-4); Lymphocytes % 17.5 %; Mean Corpuscular HGB Conc 29.6 g/dL (31.6-35.5); Mean Corpuscular Hemoglobin 26.2 pg (28.0-33.3); Mean Corpuscular Volume 88.5 fL (83.0-100.0); Mean Platelet Volume 9.4 fL (9.4-12.4); Monocytes # 0.5 K/mcL (0.0-1.3); Monocytes % 8.5 %; Neutrophils # 3.6 K/mcL (1.6-8.9); Platelet Count 131 K/mcL (140-400); Red Blood Count 3.66 M/mcL (4.19-5.50); Red Cell Distribution Width 18.1 % (11.5-14.5); Segmented Neutrophils % 65.9 %; White Blood Count 5.4 K/mcL (4.3-11.1)
[2019-05-14 02:05] LABS: Bacteria,Urine Many per hpf (None-Few); Hyaline Casts,Urine None Seen per lpf (None-Few); RBC,Urine 0-3 per hpf (0-3); Squamous Epithelial Cell,Urine Moderate per lpf (None-Few)
[2019-05-14 02:26] LABS: Alanine Aminotransferase 9 Units/L (7-52); Albumin 3.9 g/dL (3.5-5.7); Albumin/Globulin Ratio 1.6 (1.1-2.2); Alkaline Phosphatase 73 Units/L (34-104); Aspartate Amino Transferase 11 Units/L (13-39); BUN/Creatinine Ratio 22 (6-26); Bilirubin,Total 0.6 mg/dL (0.3-1.0); Blood Urea Nitrogen 23 mg/dL (8-23); Calcium 8.6 mg/dL (8.6-10.3); Carbon Dioxide 26 mEq/L (23-29); Chloride 107 mEq/L (98-107); Globulin 2.4 g/dL (2.4-3.5); Glucose 225 mg/dL (70-105); Osmolality,Calculated 301 (280-300); Sodium 140 mEq/L (136-145); Total Protein 6.3 g/dL (6.4-8.9); eGFR For African Americans > 60 (> 60); eGFR For Non-African Americans > 60 (> 60)
[2019-05-14 02:27] LABS: Troponin I < 0.03 ng/mL (< 0.04)
[2019-05-14] MEDS ORDERED: cefTRIAXone 1,000 MG in 0.9 % Sodium Chloride Mini Bag 100 ML IVPB ONE (03:08)
[2019-05-14] MEDS ORDERED: Naloxone 0.4 MG/ML INJ IVP PRN (03:17)
[2019-05-14] MEDS ORDERED: Furosemide 40 MG/4 ML VIAL IVP STA (03:53)
[2019-05-14] MEDS: Pantoprazole 40 MG VIAL IVP SCH (05:16)
[2019-05-14] MEDS: Insulin LISPRO 300 UNITS/3 ML VIAL SQ SCH ×4 (07:57→20:37)
[2019-05-14] MEDS: Loratadine 10 MG TABLET PO SCH (07:58)
[2019-05-14] MEDS: Erythromycin OPTH Oint BOTH EYES SCH ×3 (08:04→22:01)
[2019-05-14] MEDS: Nystatin POWDER 30 GM BOTTLE TP SCH ×2 (08:04→20:38)
[2019-05-14] MEDS: (Colestipol Hcl [Colestid] 1 GM) PO SCH ×2 (11:25→22:00)
[2019-05-14] MEDS: Ketoconazole 2% CRM 15 GM TUBE TP SCH (17:20)
[2019-05-14] MEDS: Furosemide 40 MG/4 ML VIAL IVP SCH (17:20)
[2019-05-14] MEDS: Finasteride 5 MG TABLET PO SCH (17:20)
[2019-05-14] MEDS: Gabapentin 300 MG CAPSULE PO SCH (20:34)
[2019-05-15] MEDS: Pantoprazole 40 MG VIAL IVP SCH (06:31)
[2019-05-15] MEDS ORDERED: cefTRIAXone 1,000 MG in Water for inj. (sterile) 10 ML IVP SCH (09:00)
[2019-05-15] MEDS: Furosemide 40 MG/4 ML VIAL IVP SCH ×2 (10:20→16:53)
[2019-05-15] MEDS: Nystatin POWDER 30 GM BOTTLE TP SCH ×2 (10:20→21:01)
[2019-05-15] MEDS: (Colestipol Hcl [Colestid] 1 GM) PO SCH ×2 (10:22→21:00)
[2019-05-15] MEDS: Insulin LISPRO 300 UNITS/3 ML VIAL SQ SCH ×4 (10:22→21:02)
[2019-05-15] MEDS: Loratadine 10 MG TABLET PO SCH (10:23)
[2019-05-15] MEDS: Erythromycin OPTH Oint BOTH EYES SCH ×3 (10:24→21:01)
[2019-05-15] MEDS: Finasteride 5 MG TABLET PO SCH (17:33)
[2019-05-15] MEDS: Ketoconazole 2% CRM 15 GM TUBE TP SCH (17:34)
[2019-05-15] MEDS ORDERED: NON-FORMULARY MEDICATION 1 EACH EACH (Pantoprazole Sodium [Protonix] 40 MG) PO SCH (19:00)
[2019-05-15] MEDS: Gabapentin 300 MG CAPSULE PO SCH (21:01)
[2019-05-16] MEDS: Pantoprazole 40 MG VIAL IVP SCH (06:02)
[2019-05-16 07:23] VITALS: BP 122/59
[2019-05-16] MEDS: Insulin LISPRO 300 UNITS/3 ML VIAL SQ SCH (08:32)
[2019-05-16] MEDS ORDERED: cefTRIAXone 2,000 MG in Water for inj. (sterile) 20 ML IVP SCH (09:00)
[2019-05-16] MEDS: Loratadine 10 MG TABLET PO SCH (11:11)
[2019-05-16] MEDS: Erythromycin OPTH Oint BOTH EYES SCH (11:12)
[2019-05-16] MEDS: Nystatin POWDER 30 GM BOTTLE TP SCH (11:13)
[2019-05-16] MEDS: (Colestipol Hcl [Colestid] 1 GM) PO SCH (11:14)
[2019-05-16] MEDS: Furosemide 40 MG/4 ML VIAL IVP SCH (11:15)
== END 2019-05-16 16:44 | disposition hospice, home (50) | DRG 291 ==
LOC: EMEROOARM 01:29 → 2NENU 01:29
PROVIDERS: ADMIT Family Medicine; ATTEND Family Medicine